=== PATIENT | female | born 1935 | race Caucasian/White ===

== ENCOUNTER 2017-01-14 22:50 | Emergency (ER) | payer OTHER ==
[~2017-01-14] VITALS: Ht 157.5 cm; Wt 63.6 kg
[2017-01-14 22:52] VITALS: Ht 157.5 cm; Wt 63.6 kg
--- NOTE | 2017-01-14 23:06 | ERA ---
ER Documentation Chief Complaint Date/Time DATE: 01/14/17 TIME: 23:05 Chief Complaint BIBA from home,c/o "room spinning",hx CVA HPI The patient is a 81-year-old female, presenting to the ER because of dizziness, she feels as if the room is spinning. The symptoms began about 9:30 PM. She has similar symptoms previously when she had a stroke. She also complains about blurred vision, difficulty ambulating. Symptoms are getting better if she closes her eyes. She denies headache, neck pain, chest pain, dyspnea, abdominal pain, vomiting, diarrhea, dysuria. She smokes socially, denies drinking Past medical history: History of CVA, hypertension, anxiety Past surgical history: Hysterectomy ROS All systems reviewed and are negative except as per history of present illness. Medications Home Meds Reported Medications Aspirin* (Aspirin* EC) 81 Mg Tablet.dr, 81 MG PO DAILY, TAB 01/14/17 Iron (Iron) Unknown Strength Tablet, 0 PO DAILY, TAB 01/14/17 Allergies Allergies: Coded Allergies: Penicillins (Unverified Allergy, Unknown, 01/14/17) acetaminophen (Unverified Allergy, Unknown, 01/14/17) hydrocodone (Unverified Allergy, Unknown, 01/14/17) meperidine (Unverified Allergy, Unknown, 01/14/17) Physical Exam Vitals Vital Signs Date Time Temp Pulse Resp B/P Pulse Ox O2 Delivery O2 Flow Rate FiO2 01/15/17 02:43 98.4 52 18 150/73 97 Room Air 01/15/17 01:55 98.4 52 18 142/78 97 Room Air 01/14/17 22:52 98.4 58 18 151/97 98 Room Air 01/14/17 22:52 98.4 62 18 180/86 99 Physical Exam Const: No acute distress. Head: Atraumatic. Eyes: Normal Conjunctiva. ENT: Normal External Ears, Nose and Mouth. Neck: Full range of motion. No meningismus. Resp: Clear to auscultation bilaterally. Cardio: Regular rate and rhythm, no murmurs. Abd: Soft, non distended, normal bowel sounds, non tender. Skin: No petechiae or rashes. Back: No midline or flank tenderness. Ext: No cyanosis, or edema. Neur: Awake and alert. No focal deficit Psych: Normal Mood and Affect. Result Diagram: 01/14/17230401/14/172304 Results 24 hrs Laboratory Tests Test 01/14/17 23:05 White Blood Count 6.210^3/ul Red Blood Count 4.3610^6/ul Hemoglobin 13.3g/dl Hematocrit 40.1% Mean Corpuscular Volume 92.0fl Mean Corpuscular Hemoglobin 30.5pg Mean Corpuscular Hemoglobin Concent 33.2g/dl Red Cell Distribution Width 12.4% Platelet Count 56580^3/UL Mean Platelet Volume 9.9fl Neutrophils % 43.1% Lymphocytes % 43.9% Monocytes % 9.7% Eosinophils % 2.3% Basophils % 0.8% Nucleated Red Blood Cells % 0.0/100WBC Neutrophils # 2.710^3/ul Lymphocytes # 2.710^3/ul Monocytes # 0.610^3/ul Eosinophils # 0.110^3/ul Basophils # 0.110^3/ul Nucleated Red Blood Cells # 0.010^3/ul Prothrombin Time 11.9Sec Prothrombin Time Ratio 0.9 INR International Normalized Ratio 0.88 Activated Partial Thromboplast Time 33.3Sec Sodium Level 139mmol/L Potassium Level 3.5mmol/L Chloride Level 107mmol/L Carbon Dioxide Level 24mmol/L Anion Gap 12 Blood Urea Nitrogen 21mg/dl Creatinine 1.20mg/dl Glucose Level 112mg/dl Calcium Level 9.4mg/dl Current Medications Medications (Trade) Dose Ordered Sig/Marlon Route PRN Reason Start Time Stop Time Status Last Admin Dose Admin Meclizine HCl (Antivert) 25 mg ONCE ONCE PO 01/14/17 23:30 01/14/17 23:31 DC 01/14/17 23:23 Procedures/MDM MEDICAL MAKING DECISION: The patient is a 81-year-old female, presenting with acute dizziness of unclear etiology. She was treated with Antivert 25 mg p.o. for acute dizziness with minimal response. The differential diagnoses considered include but are not limited to central causes such as cerebellar infarct, cerebellar hemorrhage, cerebellar tumor, acoustic neuroma, peripheral causes such as benign positional vertigo, labyrinthitis, medication, Meniere's disease. Departure Diagnosis: Primary Impression: Dizziness Condition: Stable Comments I discussed the findings with the patient. I discussed the patient with the [facility] physician Dr. Coronado at 1:30 am who was made aware of the lab , the treatment, the patient condition. The patient is admitted to [facility] She will be transferred via ambulance EDDIE FONSECA MD January 14, 2017 23:06
[2017-01-14] MEDS ORDERED: MECLIZINE 12.5 MG TAB PO ONE (23:30)
[2017-01-14 23:46] LABS: ADD SCAN DIFF NO
[2017-01-14 23:48] LABS: BASOPHIL # 0.1 10^3/ul (0.0-0.1); BASOPHILS % 0.8 % (0.0-2.0); EOSINOPHILS # 0.1 10^3/ul (0.0-0.5); EOSINOPHILS % 2.3 % (0.0-7.0); HEMATOCRIT 40.1 % (37.0-47.0); HEMOGLOBIN 13.3 g/dl (12.0-16.0); LYMPHOCYTES # 2.7 10^3/ul (0.8-2.9); LYMPHOCYTES % 43.9 % (15.0-51.0); MEAN CORPUSCULAR HEMOGLOBIN 30.5 pg (29.0-33.0); MEAN CORPUSCULAR HGB CONC 33.2 g/dl (32.0-37.0); MEAN PLATELET VOLUME 9.9 fl (7.4-10.4); MONOCYTE # 0.6 10^3/ul (0.3-0.9); MONOCYTES % 9.7 % (0.0-11.0); NEUTROPHIL # 2.7 10^3/ul (1.6-7.5); NEUTROPHILS % 43.1 % (39.0-77.0); PLATELET COUNT 249 10^3/UL (140-415); RED BLOOD COUNT 4.36 10^6/ul (4.20-5.40); RED CELL DISTRIBUTION WIDTH 12.4 % (11.5-14.5); WHITE BLOOD COUNT 6.2 10^3/ul (4.8-10.8)
[2017-01-14] MEDS ORDERED: ASPI-664 PO (23:54)
[2017-01-14] MEDS ORDERED: IRON18TA PO (23:54)
[2017-01-15 00:07] LABS: CALCIUM 9.4 mg/dl (8.4-10.2); CREATININE 1.2 mg/dl (0.44-1.00); POTASSIUM 3.5 mmol/L (3.5-5.1)
[2017-01-15 00:08] LABS: INR 0.88; PROTIME 11.9 Sec (12.2-14.2); PT RATIO 0.9
[2017-01-15 00:09] LABS: PARTIAL THROMBOPLASTIN TIME 33.3 Sec (25.0-35.0)
--- NOTE | 2017-01-15 00:45 | RADRPT ---
PROCEDURE: CT brain without contrast CLINICAL INDICATION: Headaches TECHNIQUE: A CT of the brain was performed utilizing axial sections from the skull base through th e vertex without contrast. Sagittal and coronal images were also reformatted. The exam CTDIvol = 45. 01 mGy and DLP = 720.23 mGy-cm. COMPARISON: None available FINDINGS: No acute intracranial hemorrhage is identified. There is no mass effect or midline shift. No extra -axial fluid collection is seen. The ventricles and sulci are normal in size and configuration for the patient's provided age of 81 years consistent with age-appropriate generalized atrophy. Low att enuation of the periventricular and subcortical white matter is nonspecific but most likely reflects chronic small vessel ischemic sequela. Ledesma-white differentiation is preserved with no findings to suggest an acute ischemic infarct. The fourth ventricle is midline and there is no density alteration within the ananda or cerebellum. The osseous structures are demineralized but otherwise unremarkable. Atherosclerotic calcification o f the cavernous internal carotid arteries is present. Small mucous retention cyst or polyp in the vi sible maxillary sinuses bilaterally are noted. The remaining paranasal sinuses are grossly clear RPTAT:HJJR IMPRESSION: 1. Generalized atrophy appropriate for the patient's provided age with mild chronic small vessel isc hemic white matter disease but no evidence of acute intracranial abnormality or findings to explain the patient's provided history. 2. Atherosclerotic calcification of the cavernous internal carotid arteries. 3. Small mucous retention cysts or polyps in the maxillary sinuses. Physician Sacha Date Time Electronically viewed and signed by Physician Sacha on 01/15/2017 00:45 /
[2017-01-15 02:43] VITALS: BP 150/73; PULSE 52; RESP 18; TEMP 98.4
== END 2017-01-15 02:57 | disposition short-term general hospital (02) ==
LOC: E/R 22:50
DX: R42 Dizziness and giddiness (principal); I10 Essential (primary) hypertension; Z79.82 Long term (current) use of aspirin
CPT/HCPCS: 36415; 70450; 80048; 85025; 85610; 85730